=== PATIENT | male | born 1960 | race Caucasian/White ===

== ENCOUNTER 2021-12-22 11:54 | Emergency (ER) | payer BC ==
[2021-12-22] MEDS ORDERED: Aspirin 81 MG Tab.Chew PO ONE (12:14)
[2021-12-22 13:01] LABS: CARBON DIOXIDE,CO2 28.8 mmol/L (21.0-32.0); POTASSIUM,K 4.1 mmol/L (3.5-5.1)
[2021-12-22] MEDS ORDERED: Lisinopril 5 MG Tab PO ONE (13:36)
== END 2021-12-22 14:48 | disposition home or self-care (01) ==
LOC: MW.ED 11:54
DX: R07.9 Chest pain, unspecified (principal); I10 Essential (primary) hypertension; Z79.899 Other long term (current) drug therapy
CPT/HCPCS: 36415; 71045; 80048; 83735; 84484; 85025; 93005; 99285; A9270; 93010; 99284